=== PATIENT | male | born 1970 | race Caucasian/White ===

== ENCOUNTER 2020-07-16 08:22 | Outpatient (CLI) | payer BC, SELFPAY ==
--- NOTE | ~2020-07-16 | XR_ITS ---
EXAMINATION: XR chest 2V DATE: 07/16/2020 08:43 INDICATION: Preop. TECHNIQUE: Frontal and lateral views of the chest were obtained. COMPARISON: Chest 2 views 05/20/2016 FINDINGS: A calcified right lung nodule is consistent with old granulomatous disease. No pleural effu tramaine or pneumothorax. The heart size is normal. IMPRESSION: 1. No acute cardiopulmonary disease. Reviewed, dictated and finalized at location B. [facility] [employer] [employer]
== END 2020-07-16 08:23 | disposition home or self-care (01) ==
PROVIDERS: PCP Family Medicine; Visit Provider Orthopaedic Surgery
DX: M75.100 Unspecified rotator cuff tear or rupture of unspecified shoulder, not specified as traumatic (principal); Z01.818 Encounter for other preprocedural examination
CPT/HCPCS: 71046; 87070

== ENCOUNTER 2020-07-27 00:33 | Outpatient (CLI) | payer BC, SELFPAY ==
[2020-07-27 16:41] LABS: SARS-CoV-2 RNA PCR Negative
== END 2020-07-27 00:34 | disposition home or self-care (01) ==
LOC: ANHCOVIDDT 00:33
PROVIDERS: PCP Family Medicine; Visit Provider Orthopaedic Surgery
DX: Z01.812 Encounter for preprocedural laboratory examination (principal); Z20.828 Contact with and (suspected) exposure to other viral communicable diseases
CPT/HCPCS: 87635; C9803; U0003

== ENCOUNTER 2020-07-29 00:47 | Day surgery (SDC) | payer BC, SELFPAY ==
[2020-07-15 14:17] VITALS: BMI 33.4
--- NOTE | 2020-07-24 12:24 | PM.IMHP ---
H&P: HPI History of Present Illness Date/Time: 07/24/20 12:24 <KAYLA Mcmahan - Last Filed: 07/24/20 12:30> Chief complaint: Right Shoulder Rotator Cuff Tear <KAYLA Mcmahan - Last Filed: 07/24/20 12:30> Narrative: Giuseppe Marcial is a 50 year old male Patient of Dr. Nagel who presents today for arthroscopy of his right shoulder with rotator cuff repair. He has been having symptoms in his shoulder for over 2 years. He has progressively worsening to the point where he is noticing that his shoulder is quite weak with a lot of normal daily activities. He is also getting quite a bit of pain in it as well. He was initially seen early June of this year. After initial evaluation he was sent for an MRI scan of the shoulder. MRI scan does show a full-thickness tear involving the entire width of the supraspinatus tendon. Also some partial tearing of the upper infraspinatus tendon. Patient has decided he would rather proceed with rotator cuff repair rather than continuing to treat this nonsurgically. <KAYLA Mcmahan - Last Filed: 07/24/20 12:30> Review of Systems Review of Systems: All systems reviewed & are unremarkable except as noted in HPI and below <KAYLA Mcmahan - Last Filed: 07/24/20 12:30> [facility] Past Medical History Medical History: Medical History Erectile dysfunction GERD (gastroesophageal reflux disease) ROSA MARIA (obstructive sleep apnea) Rotator cuff tear <KAYLA Mcmahan - Last Filed: 07/24/20 12:30> Social History Social History: Social History Smoking packs per day: 0.25 Smoking cigarettes per day: 5.0 Years smoked: 20 Smoking pack-years: 5.00 Smoking status: Former smoker Tobacco type: cigarettes Second hand tobacco smoke exposure: No Smoking end date: 09/04/08 Additional smoking assessment comments: QUIT FEW YEARS AGO Alcohol intake: current Drinks per week: 5 Substance use: never Substance use type: does not use Gender identity (if verbalized by the patient): Male Spiritual care concerns: No <KAYLA Mcmahan - Last Filed: 07/24/20 12:30> Meds Home Medications and Allergies Home medications: Home Medications Medication Instructions Recorded Confirmed Type sildenafil 50 mg tablet 50 mg PO DAILY PRN #10 tablet 09/30/19 07/29/20 Rx famotidine 20 mg PO DAILY 07/15/20 07/29/20 History <KAYLA Mcmahan Last Filed: 07/24/20 12:30> Allergies/Adverse reactions: Allergies Allergy/AdvReac Type Severity Reaction Status Date / Time No Known Allergies Allergy Unverified 07/29/20 10:47 <KAYLA Mcmahan Last Filed: 07/24/20 12:30> Exam Narrative: Exam Narrative: 50-year-old male very alert pleasant no distress. He is 5 ft 8 124 lb. Elevation of the right shoulder is to 160? with moderate pain. External rotation is 65 and internal rotation L1 all with moderate pain. He is unable do a subscap lift-off. He has normal belly press strength. Rather severe tenderness at the supraspinatus tendon insertion. AC joint is nontender. He has moderate weakness associated with mild pain with abduction testing. He has moderate pain with external rotation strength testing and mild weakness with this as well. Speed's maneuver is negative. He has normal biceps muscle contour. 2+ radial pulse. Neck range of motion causes no discomfort. <KAYLA Mcmahan - Last Filed: 07/24/20 12:30> Resp: Auscultation: clear to auscultation bilaterally <KAYLA Mcmahan Last Filed: 07/24/20 12:30> Cardio: Rate: regular rate <KAYLA Mcmahan Last Filed: 07/24/20 12:30> Rhythm: regular rhythm <KAYLA Mcmahan Last Filed: 07/24/20 12:30> Assessment and Plan Additional Plan Patient has a chronic medium-size rotator cuff tear involving the entire width of the supraspinatus and upper infraspinatus
--- NOTE | 2020-07-28 09:23 | P.PNAN_ITS ---
Anes - Initial Pre Proc Eval Procedure: Operation Date: 07/29/20 12:00 Proposed Procedures p Right Shoulder Arthroscopy, Acromioplasty, Mini Open Rotator Cuff Repair, Proceed As Indicated - Enrique Victoria MD Date/Time: 07/28/20 09:23 Surgeon: Enrique Victoria MD Pre Op Diagnosis: Right Shoulder Rotator Cuff Tear Patient Data Age: 50 Gender: M Height: 1.73 m Weight: 99.79 kg Allergies Allergy/AdvReac Type Severity Reaction Status Date / Time No Known Allergies Allergy Unverified 07/29/20 10:47 Home Medications Medication Instructions Recorded Confirmed Type sildenafil 50 mg tablet 50 mg PO DAILY PRN #10 tablet 09/30/19 07/29/20 Rx famotidine 20 mg PO DAILY 07/15/20 07/29/20 History Patient hx anesthesia problems: none Family hx anesthesia problems: none [facility] Past Medical History Medical History Erectile dysfunction GERD (gastroesophageal reflux disease) ROSA MARIA (obstructive sleep apnea) Rotator cuff tear Social History Social History Smoking packs per day: 0.25 Smoking cigarettes per day: 5.0 Years smoked: 20 Smoking pack-years: 5.00 Smoking status: Former smoker Tobacco type: cigarettes Second hand tobacco smoke exposure: No Smoking end date: 09/04/08 Additional smoking assessment comments: QUIT FEW YEARS AGO Alcohol intake: current Drinks per week: 5 Substance use: never Substance use type: does not use Gender identity (if verbalized by the patient): Male Spiritual care concerns: No Anes - Eval Final PreProcedure Day of Procedure 07/28/20 09:23 Patient weight: obese Heart: regular rate and rhythm Lungs: clear to auscultation and normal air movement Airway: Mallampati scale class III Neurological: alert and oriented Last oral intake: >/= 8 hours ASA classification: III Emergent: no Anesthetic plan: proceed Anesthesia type and monitoring: general ETT and standard monitoring Informed Consent: The patient's anesthetic plan and its attendant risks and benefits were discussed with the patient/family/POA. Questions were solicited and answers provided to the satisfaction of the patient/family/POA.
--- NOTE | 2020-07-28 09:23 | WPDANESPNB ---
Anes - Peripheral Nerve Block Date/Time: 07/28/20 09:23 I have discussed with the patient/family/POA the placement of a peripheral nerve block for post-operative pain management, including associated risks, benefits, complications, and side effects. Alternative methods of post-operative analgesia were detailed. Questions were solicited and answers provided to the satisfaction of the patient/family/POA. Time-Out: A pre-procedural Time-Out was completed immediately before starting the procedure and confirmed: Patient Identification, Site, Procedure, Patient Position and the Availability of Requisite Equipment. Clinical Indications: Acute post-operative pain management requested by the operative surgeon. Nerve Block Insertion Note Anes-nerve block: interscalene right Patient position: supine Skin prep: chlorhexidine Needle: 22 gauge, stimulating, insulated echogenic needle. Needle length: 50 mm Technique: ultrasound Injectate: bupivacaine 0.5% with epi 5 mcg/ml (30cc) Observations: tolerated well Complications: none Procedure start time:: 1211 Procedure end time:: 1213
[2020-07-29] VITALS (7 sets, daily range): BP systolic 113–144; BP diastolic 73–96; PULSE 60–78; RESP 14–18; TEMP 36.1–37.2; O2SAT 96–100
[2020-07-29] MEDS: ACETAMINOPHEN 500 MG TABLET 1000 MG PO (10:45)
[2020-07-29] MEDS: LACTATED RINGERS 1,000 ML 30 ML IV CONT ×2 (11:04→14:42)
[2020-07-29] MEDS: KETOROLAC 15 MG/ML VIAL (*BKC) IV PUSH (11:05)
--- NOTE | 2020-07-29 12:05 | WPDHPUPDATE1 ---
History and Physical Update Update Date/Time: 07/29/20 12:05 History and Physical has been reviewed, including an updated exam of the patient. There are NO changes in the patient's condition. Risks, benefits, and alternatives have been discussed and questions answered. Patient agrees to proceed with procedure.
[2020-07-29] MEDS: ceFAZolin 2 GM/D5W 50 ML 2 GM/50 ML BAG IVPB (12:18)
[2020-07-29] MEDS: ceFAZolin SODIUM 1 GM VIAL IRRIGATION ×2 (13:40→14:27)
--- NOTE | 2020-07-29 14:25 | PM.PROC ---
Procedure Note - Detailed Date of procedure: 07/29/20 Pre-op diagnosis: Right Shoulder Rotator Cuff Tear Post-op diagnosis: same Procedure performed: Arthroscopic labral debridement arthroscopic acromioplasty mini open rotator cuff repair right shoulder Description of procedure: Patient was brought to the operating room and general anesthesia was administered. He received an interscalene block preoperatively. He was given 2 g of Ancef and weight based vancomycin IV preoperatively. He was placed in the beach chair position head secured in neutral alignment the right shoulder prepped draped usual fashion. All the skin covered with Ioban accept the top portion. Posterior arthroscopic portal was placed. The articular surfaces looked fine. He had a hypermobile superior labrum with maceration of its inner margin which was lightly debrided with motorized shaver. The long of the biceps and its anchor looked normal. The biceps was retracted into the joint portion in the bicipital groove showed no evidence of fraying. There was minimal fissuring at the articular side of the insertion of the subscapularis and using the 70 scope with posterior lever push maneuver we could see its insertion well there was no significant tearing there. There is a full-thickness tear of the supraspinatus tendon visible and upper infraspinatus. Arthroscope was placed in the subacromial space. There was marked fraying of the CA ligament. He had a large anterior acromial osteophyte. An outflow portal was placed anterior superiorly and mid lateral portal placed and we is alternating shaver and ArthroCare to debride the CA ligament origin exposing the spur and the wound mid lateral portal the spur was burred with the arthroscopic router from posterior portal the compressing the anterior subacromial space. Arthroscopic instruments removed. All the skin was covered with Ioban outer gloves changed. A 2 in longitudinal incision was made over the anterior superior shoulder dissection carried down to the tendons raphe between the anterior middle heads of the deltoid which was longitudinally incised. This was elevated off the acromial spur. Although the spur was thinned quite a bit with the burning from in the joint and extended anteriorly and was easy to simply remove the anterior extension with the needle-nose rongeur and this was further smoothed with the Merlin rasp completing the acromioplasty process. I would estimate that we released about 5 mm of anterior deltoid to expose this and this gave optimal exposure in the deltoid split which was made for 4 cm and a self-retaining retractor was placed. The tear was a medium-sized tear about 2 cm in with a U shaped. It did involve the anterior cable of the supraspinatus right up to the long of the biceps. Greater tuberosity was carefully debrided a 2 mm bur used to make numerous 1 mm indentations and 2 mm bur holes adjacent to articular surface for Paget's suture. The Uniregistry suture Passer was used pass 2 of the Arthrex suture tapes through the tendon obtaining maximal thickness bites to work obtained purchase on the entire with the tendon insertion and these were shuttled through the greater tuberosity in the appropriate position to reduce and begin to secure the rotator cuff repair. Then reinforced repair with another 5 or 6 2. Ethibond all placed in simple fashion in the converging pattern to give us a spherical surface on the repaired rotator cuff. Range of motion was good there is no undue stress on the repair. We did release subacromial adhesions with the tear elevator. A single 2. Vicryl was passed through the anterior acromion as well as 2. Vicryl as in the split to give a secure deltoid repair. Skin closed with 2 subcutaneous Vicryl and glue was placed in a slingshot type UltraSling device and transferred postop recovery room stable condition. No known complications. I felt the tendon thickness and integrity of the tendon was good. Anesthesia:
--- NOTE | 2020-07-29 15:17 | SUR.PHASEI ---
1515- PT WITH STRONG COUGH, FEELING OF CONGESTION . PT HAD A BLOCK PRIOR TO SURGERY. SITTING UPRIGHT.
== END 2020-07-29 16:36 | disposition home or self-care (01) ==
PROVIDERS: PCP Family Medicine; Visit Provider Orthopaedic Surgery
PROC: (CPT 29805; principal; 2020-07-29 12:00)
DX: M75.101 Unspecified rotator cuff tear or rupture of right shoulder, not specified as traumatic (principal); G89.18 Other acute postprocedural pain; G47.33 Obstructive sleep apnea (adult) (pediatric); K21.9 Gastro-esophageal reflux disease without esophagitis; N52.9 Male erectile dysfunction, unspecified; Z87.891 Personal history of nicotine dependence; E66.9 Obesity, unspecified; Z68.34 Body mass index [BMI] 34.0-34.9, adult
CPT/HCPCS: 23412; 29823; 64415; A4565; A9270; J0690; J1100; J1885; J2250; J2405; J2704; J2710; J3010; J3370; J7120

== ENCOUNTER 2022-02-07 02:18 | Day surgery (SDC) | payer OTHER, SELFPAY ==
[2022-01-18 13:51] VITALS: BMI 32.5
--- NOTE | 2022-02-07 07:07 | PM.HPGS ---
History of Present Illness History of Present Illness Consent: Risks, benefits, and alternatives have been discussed and questions answered. Patient agrees to proceed with procedure. Chief complaint: neoplasm screening Narrative: Raimundo Marcial is a 52 year old male Referred for colon cancer screening. Review of Systems Review of Systems: All systems reviewed & are unremarkable except as noted in HPI and below PMFSH Past Medical History Medical History Erectile dysfunction GERD (gastroesophageal reflux disease) Obesity ROSA MARIA (obstructive sleep apnea) Rotator cuff tear s/p repair Social History Social History Smoking packs per day: 0.5 Smoking cigarettes per day: 10.0 Years smoked: 10 Smoking pack-years: 5.00 Smoking status: Former smoker Tobacco type: cigarettes Second hand tobacco smoke exposure: No Smoking end date: 09/04/08 Additional smoking assessment comments: QUIT FEW YEARS AGO Alcohol intake: current Drinks per week: 5 Substance use: never Substance use type: does not use Living arrangements: with family Gender identity (if verbalized by the patient): Male Sexual Orientation (if Verbalized by the Patient): Straight or Heterosexual Spiritual care concerns: No Meds Home Medications and Allergies Home Medications Medication Instructions Recorded Confirmed Type famotidine 20 mg tablet 20 mg PO DAILY 07/15/20 01/18/22 History sildenafil 50 mg tablet (Viagra) 50 mg PO DAILY PRN sexual activity 04/12/21 02/07/22 Rx #10 tabs Allergies Allergy/AdvReac Type Severity Reaction Status Date / Time No Known Allergies Allergy Verified 02/07/22 10:04 Exam Resp: Auscultation: clear to auscultation bilaterally Cardio: Rate: regular rate Rhythm: regular rhythm GI: GI Palp: Yes Soft to palpation and No Tenderness to palpation present (GI) Assessment and Plan Assessment and plan (1) Colon cancer screening: Code(s): Z12.11 - Encounter for screening for malignant neoplasm of colon Status: Acute Assessment and Plan: Colonoscopy with possible biopsy or polypectomy or cautery or injection of substances.
--- NOTE | 2022-02-07 09:04 | WPDANESEPPF ---
Anes - Initial Pre Proc Eval Procedure: Operation Date: 02/07/22 11:00 Proposed Procedures p Screening Colonoscopy - Jose Antonio Villar MD Date/Time: 02/07/22 09:04 Surgeon: Jose Antonio Villar MD Pre Op Diagnosis: neoplasm screening Patient Data Age: 52 Gender: M Height: 1.75 m Weight: 100 kg Allergies Allergy/AdvReac Type Severity Reaction Status Date / Time No Known Allergies Allergy Verified 02/07/22 10:04 Home Medications Medication Instructions Recorded Confirmed Type famotidine 20 mg tablet 20 mg PO DAILY 07/15/20 01/18/22 History sildenafil 50 mg tablet (Viagra) 50 mg PO DAILY PRN sexual activity 04/12/21 02/07/22 Rx #10 tabs Patient hx anesthesia problems: none Family hx anesthesia problems: none Results Review: All pre-operative results and documents have been reviewed as part of the pre-operative evaluation. [facility] Past Medical History Medical History (Updated 02/07/22 @ 09:04 by Kai Adkins MD) Erectile dysfunction GERD (gastroesophageal reflux disease) Obesity ROSA MARIA (obstructive sleep apnea) Rotator cuff tear s/p repair Social History Social History (Updated 10/13/20 @ 14:00 by Mary Kumar) Smoking packs per day: 0.5 Smoking cigarettes per day: 10.0 Years smoked: 10 Smoking pack-years: 5.00 Smoking status: Former smoker Tobacco type: cigarettes Second hand tobacco smoke exposure: No Smoking end date: 09/04/08 Additional smoking assessment comments: QUIT FEW YEARS AGO Alcohol intake: current Drinks per week: 5 Substance use: never Substance use type: does not use Living arrangements: with family Gender identity (if verbalized by the patient): Male Sexual Orientation (if Verbalized by the Patient): Straight or Heterosexual Spiritual care concerns: No Anes - Eval Final PreProcedure Day of Procedure 02/07/22 09:04 Patient weight: obese Heart: regular rate and rhythm Lungs: clear to auscultation and normal air movement Airway: Mallampati scale class III Neurological: alert and oriented Last oral intake: >/= 8 hours ASA classification: II Emergent: no Anesthetic plan: proceed Anesthesia type and monitoring: general GIVS Results Review: All pre-operative results and documents have been reviewed as part of the pre-operative evaluation. Informed Consent: The patient's anesthetic plan and its attendant risks and benefits were discussed with the patient/family/POA. Questions were solicited and answers provided to the satisfaction of the patient/family/POA.
[2022-02-07 10:05] VITALS: BP 124/83; PULSE 68; RESP 18; TEMP 36.2; O2SAT 99; BMI 32.3
[2022-02-07] MEDS: LACTATED RINGERS 1,000 ML 150 ML IV CONT (10:14)
[2022-02-07 10:48] VITALS: BP 108/69; PULSE 83; RESP 17; O2SAT 97
[2022-02-07 10:58] VITALS: BP 115/73; PULSE 64; RESP 19; O2SAT 97
[2022-02-07 11:08] VITALS: BP 106/72; PULSE 64; RESP 18; O2SAT 98
== END 2022-02-07 11:19 | disposition home or self-care (01) ==
PROVIDERS: PCP Family Medicine; Visit Provider Internal Medicine Gastroenterology
PROC: 0DJD8ZZ Inspection of Lower Intestinal Tract, Via Natural or Artificial Opening Endoscopic (ICD-10-PCS; CPT 45378; principal; 2022-02-07 11:00)
DX: Z12.11 Encounter for screening for malignant neoplasm of colon (principal); K57.30 Diverticulosis of large intestine without perforation or abscess without bleeding; E66.9 Obesity, unspecified; Z68.32 Body mass index [BMI] 32.0-32.9, adult; G47.33 Obstructive sleep apnea (adult) (pediatric); N52.9 Male erectile dysfunction, unspecified; K21.9 Gastro-esophageal reflux disease without esophagitis; Z87.891 Personal history of nicotine dependence
CPT/HCPCS: 45378; J2704; J7120

== ENCOUNTER 2024-11-27 08:17 | Emergency (ER) | payer OTHER, BC, SELFPAY ==
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
[2024-11-27 08:23] VITALS: BP 143/92; PULSE 80; RESP 18; TEMP 36.4; O2SAT 97
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
[2024-11-27] MEDS: KETOROLAC 15 MG/ML VIAL (*BKC) IV PUSH (09:10)
--- OUTSIDE RECORDS SUMMARY | 2024-11-27 09:31 | XMS_ITS | Clinical Summary ---
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 Gender Identity Not on file Sexual Orientation Not on file Plan of Treatment Health Maintenance Due Date Last Done Comments Colon Cancer Screening-Colonoscopy 1968 Depression Screening 1968 Hepatitis C Screening 1968 Prostate Cancer Screening-PSA 1968 DTaP/Tdap/Td Vaccine (1 - Tdap) 01/29/1979 Hepatitis B Screening 01/29/1986 Regular Well Visit/Exam 18-64 01/29/1986 Zoster Vaccine (1 of 2) 01/29/2018 Covid-19 Vaccine (3 - 2023-2 5 season) 2024 11/16/2021, 11/23/2020 Influenza Vaccine (#1) 2024 Pneumococcal vaccine <65 Aged Out No longer eligible based on patient's age to complete this topic Insurance [employer] OOS Member Subscriber Plan / Payer (Ef fective 2022-Present) Name:Raimundo Marcial Relation to Subscriber:Self Name:Raimundo Marcial Payer ID:[id number] (NAIC) Type:[facility] Address: [facility] [address] [id number] Care Teams Massage Operator Relationship Specialty Start Date End Date Thiago Nagel MD [address] [place] [address] PCP - General Family Medicine 11/02/22
--- OUTSIDE RECORDS SUMMARY | 2024-11-27 09:31 | XMS_ITS | Clinical Summary ---
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 Gender Identity Not on file Sexual Orientation Not on file Plan of Treatment Health Maintenance Due Date Last Done Comments Hepatitis C Virus (HCV) Screening 1968 TdaP Immunization 1968 Hepatitis B Immunization (1 of 3 - 19+ 3-dose series) 01/29/1987 Colonoscopy 01/29/2013 Colorectal Cancer Screening 01/29/2013 Cologuard 01/29/2018 Immunochemical Fecal Occult Blood 01/29/2018 Pneumococcal Immunization (5 0+ years) (1 of 1 - PCV) 01/29/2018 Zoster Immunization (1 of 2) 01/29/2018 PSA Discussion 01/29/2023 Influenza Immunization (#1) 2024 SARS-COV-2 Immunization ( - season) 2024 Respiratory Syncytial Virus (RSV) Immunization (Adult) (1 - 1-dose 75+ series) 01/29/2043 Meningococcal Immunization (ACWY) Aged Out No longer eligible based on patient's age to complete this topic Pneumococcal Immunization Combined Aged Out No longer eligible based on patient's age to complete this topic Rotavirus Immunization Aged Out No lo nger eligible based on patient's age to complete this topic
--- OUTSIDE RECORDS SUMMARY | 2024-11-27 09:31 | XMS_ITS | Referral Summary ---
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
[2024-11-27 09:32] LABS: Basophils Absolute Auto 0.1 K/mm3 (0.0-0.1); Basophils Percent Auto 0.6 % (0.2-1.2); Eosinophils Absolute Auto 0.1 K/mm3 (0-0.3); Eosinophils Percent Auto 1.5 % (0-4.4); Hematocrit 46.8 % (42.0-52.0); Hemoglobin 15.8 g/dL (14.0-18.0); Immature Granulocyte Absolute 0.04 K/mm3 (0.00-0.031); Immature Granulocyte Percent A 0.5 % (0-0.5); Lymphocytes Percent Auto 17.4 % (18.3-44.2); Mean Corpuscular HGB Conc 33.8 g/dl (32-36); Mean Corpuscular Hemoglobin 31.3 pg (26-34); Mean Corpuscular Volume 92.9 fl (80-100); Mean Platelet Volume 9.7 fl (7.4-10.4); Monocytes Absolute Auto 0.5 K/mm3 (0.1-0.6); Platelet Count Result 342 k/mm3 (150-375); Red Blood Count 5.04 M/mm3 (4.6-6.20); Red Cell Distribution Width 13.2 % (11.5-14.5); White Blood Count 8.1 K/mm3 (4.5-10.0)
[2024-11-27 09:36] LABS: Estimated CRCL calculation 68 ml/min; Estimated Glomerular Filt Rate 57
[2024-11-27 09:43] LABS: INR 0.9; Prothrombin Time 12.8 Seconds (11.1-14.7)
[2024-11-27 09:44] LABS: Partial Thromboplastin Time 27.7 Seconds (22.3-36.8)
[2024-11-27 09:46] LABS: Alanine Aminotransferase 32 U/L (6-50); Albumin Level 4.7 g/dL (3.5-5.1); Alkaline Phosphatase 90 U/L (38-126); Anion Gap 10 mmol/L (4-12); Aspartate Amino Transferase 30 U/L (17-59); Bilirubin,Total 0.5 mg/dL (0.2-1.3); Blood Urea Nitrogen 17 mg/dL (9-20); Calcium 10.3 mg/dL (8.4-10.2); Carbon Dioxide 27 mmol/L (22-30); Chloride 104 mmol/L (98-107); Estimated CRCL calculation 70 ml/min; Estimated Glomerular Filt Rate 59; Glucose 110 mg/dL (65-110); Potassium 4.9 mmol/L (3.4-5.0); Sodium 141 mmol/L (137-145)
[2024-11-27 11:29] VITALS: BP 124/90; PULSE 80; RESP 16; O2SAT 97
== END 2024-11-27 11:30 | disposition home or self-care (01) ==
PROVIDERS: Emergency Provider Student in an Organized Health Care Education/Training Program; PCP Family Medicine
DX: S22.42XA Multiple fractures of ribs, left side, initial encounter for closed fracture (principal); E66.9 Obesity, unspecified; Z68.34 Body mass index [BMI] 34.0-34.9, adult; G47.33 Obstructive sleep apnea (adult) (pediatric); K21.9 Gastro-esophageal reflux disease without esophagitis; Z87.891 Personal history of nicotine dependence; M47.812 Spondylosis without myelopathy or radiculopathy, cervical region; V43.52XA Car driver injured in collision with other type car in traffic accident, initial encounter
CPT/HCPCS: 36415; 70450; 71260; 72125; 74177; 80053; 85025; 85610; 85730; 96374; 99284; J1885; Q9967

== ENCOUNTER 2024-12-04 09:51 | Outpatient (CLI) | payer BC, SELFPAY ==
--- NOTE | ~2024-12-04 | XR_ITS ---
HISTORY: None provided COMPARISON: Reference is made to CT examination of the chest, abdomen and pelvis dated 11/27/2024. TECHNIQUE: 3 views of the bilateral ribs were performed. FINDINGS: Plain film evaluation is not quite as sensitive as CT examination which demonstrated multiple nondisp laced fractures of the bilateral upper ribs. Within the limitations of a plain film evaluation: Possible fracture deformity is identified within the left fifth rib without additional fracture defor mity appreciated. Within the right hemithorax, no right-sided rib fractures are appreciated on plain film evaluation. Bone mineralization is age-appropriate. IMPRESSION: Given the limitations of a plain film evaluation of the bilateral ribs for fracture detection, a poss ible fracture deformity is identified within the left fifth rib, as detailed above. Repeat evaluation of CT examination dated 11/27/2024 demonstrated the following nondisplaced fractures : Within the anterior lateral margin of the left fourth, fifth, and sixth ribs. As well as within the anterior lateral margins of the right fifth, sixth, seventh and possibly the ei ghth ribs. Reviewed, dictated and finalized at location A. IMPRESSION: Given the limitations of a plain film evaluation of the bilateral ribs for frac ture detection, a possible fracture deformity is identified within the left fif th rib, as detailed above. Repeat evaluation of CT examination dated 11/27/2024 demonstrated the following nondisplaced fractures: Within the anterior lateral margin of the left fourth, fifth, and sixth ribs. As well as within the anterior lateral margins of the right fifth, sixth, seven th and possibly the eighth ribs.
--- OUTSIDE RECORDS SUMMARY | 2024-12-04 10:52 | XMS_ITS | Clinical Summary ---
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
--- OUTSIDE RECORDS SUMMARY | 2024-12-04 10:52 | XMS_ITS | Clinical Summary ---
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
--- OUTSIDE RECORDS SUMMARY | 2024-12-04 10:53 | XMS_ITS | Referral Summary ---
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
== END 2024-12-04 09:52 | disposition home or self-care (01) ==
PROVIDERS: PCP Family Medicine; Visit Provider Physician Assistant Medical
DX: S22.42XD Multiple fractures of ribs, left side, subsequent encounter for fracture with routine healing (principal); X58.XXXD Exposure to other specified factors, subsequent encounter
CPT/HCPCS: 71110

== ENCOUNTER 2024-12-12 12:26 | Outpatient (CLI) | payer BC, SELFPAY ==
--- NOTE | ~2024-12-12 | XR_ITS ---
AP, oblique, and lateral views of the right second toe CLINICAL HISTORY: Pain FINDINGS: No fracture or dislocation seen. Minimal degenerative change of the DIP joint. Soft tissues are unremarkable. IMPRESSION: Minimal degenerative change at the DIP joint of the right second toe. No fracture or dislocation. Reviewed, dictated and finalized at [facility].
--- NOTE | ~2024-12-12 | XR_ITS ---
EXAM/ PROCEDURE: XR foot RT min 3V - 12/12/2024 12:30 CDT HISTORY: 54 years old Male with M79.671 - Pain in right foot COMPARISON: None available TECHNIQUE: Three view(s) FINDINGS/ IMPRESSION: There are no fractures or dislocations.Joint space narrowing, subchondral sclerosis, subchondral cyst formation and osteophyte formation, compatible with mild osteoarthritis. Plantar calcaneal spur seen . Mild Achilles tendon enthesopathy noted. Reviewed, dictated and finalized at location A.
== END 2024-12-12 12:27 | disposition home or self-care (01) ==
LOC: MICIMG 12:27
PROVIDERS: PCP Family Medicine; Visit Provider Physician Assistant
DX: M79.671 Pain in right foot (principal); M79.674 Pain in right toe(s)
CPT/HCPCS: 73630; 73660

== ENCOUNTER 2024-12-17 14:51 | Outpatient (CLI) | payer BC, SELFPAY ==
--- NOTE | ~2024-12-17 | XR_ITS ---
Left Shoulder Technique: AP and axillary views were obtained. Clinical History: Pain Findings: No fracture or dislocation is seen. Osseous alignment is anatomic. The glenohumeral and acr omioclavicular joint spaces are preserved. Soft tissues are unremarkable. Impression: Unremarkable left shoulder radiographs. Reviewed, dictated and finalized at [facility]. Impression: Unremarkable left shoulder radiographs.
--- OUTSIDE RECORDS SUMMARY | 2024-12-17 16:01 | XMS_ITS | Referral Summary ---
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
--- OUTSIDE RECORDS SUMMARY | 2024-12-17 16:01 | XMS_ITS | Clinical Summary ---
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 Address: [facility] [id number] [phone] Care Teams Computerized Mill Mill Recorder Relationship Specialty Start Date End Date Thiago Nagel MD [address] [place] [address] PCP - General Family Medicine 11/02/22
--- OUTSIDE RECORDS SUMMARY | 2024-12-17 16:01 | XMS_ITS | Clinical Summary ---
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
== END 2024-12-17 14:52 | disposition home or self-care (01) ==
PROVIDERS: PCP Family Medicine; Visit Provider Family Medicine
DX: M25.512 Pain in left shoulder (principal)
CPT/HCPCS: 73030

== ENCOUNTER 2025-03-18 12:02 | Outpatient (CLI) | payer BC, SELFPAY ==
--- NOTE | ~2025-03-18 | XR_ITS ---
Left foot Technique: AP and lateral views were obtained. Clinical History: Pain Findings: No acute fracture or dislocation is seen. Osseous alignment is anatomic. Joint spaces are p reserved without erosive or degenerative change. Soft tissues are unremarkable. Impression: Unremarkable left foot radiographs. Reviewed, dictated and finalized at location . Impression: Unremarkable left foot radiographs.
--- NOTE | ~2025-03-18 | XR_ITS ---
Right foot Technique: AP, oblique, and lateral views were obtained. Clinical History: Pain Findings: No acute fracture or dislocation is seen. Osseous alignment is anatomic. There is moderate degenerative change of the first MTP joint. Soft tissues are unremarkable. Impression: Moderate degenerative change of the first MTP joint. Reviewed, dictated and finalized at [facility]. Impression: Moderate degenerative change of the first MTP joint.
== END 2025-03-18 12:03 | disposition home or self-care (01) ==
LOC: MICIMG 12:04
PROVIDERS: PCP Family Medicine; Visit Provider Family Medicine
DX: M19.071 Primary osteoarthritis, right ankle and foot (principal)
CPT/HCPCS: 73620

== ENCOUNTER 2025-06-02 11:15 | Outpatient (CLI) | payer BC, SELFPAY ==
--- NOTE | ~2025-06-02 | XR_ITS ---
EXAMINATION: XR foot RT min 3V, 06/02/2025 11:20 CDT HISTORY: S99.921A - Unspecified injury of right foot, initial enco... COMPARISON: No comparisons available. Findings: No acute fracture or malalignment. No significant degenerative changes. Soft tissues unremarkable. Impression: No acute fracture or malalignment. Reviewed, dictated and finalized at location P. Impression: No acute fracture or malalignment.
== END 2025-06-02 11:16 | disposition home or self-care (01) ==
LOC: MICIMG 11:17
PROVIDERS: PCP Family Medicine; Visit Provider Physician Assistant Medical
DX: S99.921A Unspecified injury of right foot, initial encounter (principal); X58.XXXA Exposure to other specified factors, initial encounter
CPT/HCPCS: 73630

== ENCOUNTER 2025-07-10 16:34 | Outpatient (CLI) | payer BC, SELFPAY ==
--- NOTE | ~2025-07-10 | XR_ITS ---
XR_[id number]_CR Indication: M54.5 - Low back pain Comparison: None Findings: The vertebral heights are intact. No fracture or subluxation. Moderate loss of disc height throughout Soft tissues unremarkable Impression: No acute abnormality. Reviewed, dictated and finalized at location P. ONAL BUSINESS MANAGER Impression: No acute abnormality.
--- NOTE | ~2025-07-10 | XR_ITS ---
XR lumbar spine 2-3V Indication: M54.5 - Low back pain Comparison: None Findings: The vertebral heights are intact. No fracture or subluxation. Moderate loss of disc height at L4-5 and L5-S1. Soft tissues unremarkable Impression: No acute abnormality. Reviewed, dictated and finalized at location P. RINE CELL TENDER Impression: No acute abnormality.
--- NOTE | ~2025-07-10 | XR_ITS ---
XR thoracic spine 2V Indication: M54.5 - Low back pain Comparison: None Findings: The vertebral heights are intact. No fracture or subluxation. The disc heights are intact. Soft tissues unremarkable Impression: No acute abnormality. Reviewed, dictated and finalized at location P. C ACOUSTIC ANALYST Impression: No acute abnormality.
--- NOTE | ~2025-07-10 | XR_ITS ---
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 Findings: No acute fracture or malalignment. No significant degenerative changes. Soft tissues unremarkable. Impression: No acute fracture or malalignment. Reviewed, dictated and finalized at location P. UGATOR MACHINE OPERATOR Impression: No acute fracture or malalignment.
--- NOTE | ~2025-07-10 | XR_ITS ---
EXAMINATION: XR chest 2V, 07/10/2025 16:39 CONSUMER RELATIONS COMPLAINT CLERK HISTORY: M54.5 - Low back pain COMPARISON: No comparisons available. Technique: 2 views obtained. Findings: The lungs are clear, no effusion. No pneumothorax. Heart is normal size. Mediastinal and hilar contours are within normal limits. Bony thorax no acute abnormality. Impression: No acute cardiopulmonary abnormality. Reviewed, dictated and finalized at location P. UMER RELATIONS COMPLAINT CLERK Impression: No acute cardiopulmonary abnormality.
== END 2025-07-10 16:35 | disposition home or self-care (01) ==
LOC: MICIMG 16:35
PROVIDERS: PCP Family Medicine
DX: M54.50 Low back pain, unspecified (principal); R29.890 Loss of height; M54.6 Pain in thoracic spine; R07.89 Other chest pain; V89.2XXA Person injured in unspecified motor-vehicle accident, traffic, initial encounter
CPT/HCPCS: 71046; 71120; 72040; 72070; 72100

== ENCOUNTER 2025-08-23 08:14 | Outpatient (CLI) | payer BC, SELFPAY ==
--- NOTE | ~2025-08-23 | MR_ITS ---
EXAMINATION: MR lumbar spine wo con DATE: 08/23/2025 08:58 INDICATION: Low back pain. TECHNIQUE: Magnetic resonance imaging (MRI) of the lumbar spine was performed without intravenous contrast. Sequences included sagittal T2-weighted FSE, sagittal T2-weighted FS FSE, sagittal T1-weighted FSE, and axial T2-weighted FSE. COMPARISON: Lumbar spine radiographs 07/10/25 FINDINGS: Alignment is normal. Vertebral body heights are normal. There is mildly decreased disc height at L4-L5. The distal spinal cord signal intensity is normal. The conus medullaris is at L1. The following disc levels are specifically discussed: L1-L2: The disc does not extend beyond the endplate margin. There is mild bilateral facet joint osteoarthritis. There is no neural foraminal stenosis. There is no central canal stenosis. L2-L3: The disc does not extend beyond the endplate margin. There is moderate bilateral facet joint osteoarthritis. There is no neural foraminal stenosis. There is no central canal stenosis. L3-L4: The disc does not extend beyond the endplate margin. There is severe bilateral facet joint osteoarthritis. There is no neural foraminal stenosis. There is no central canal stenosis. L4-L5: The disc is bulging and has an annular fissure. There is moderate right and severe left facet joint osteoarthritis. There is mild bilateral neural foraminal stenosis. There is mild central canal stenosis. L5-S1: The disc does not extend beyond the endplate margin. There is moderate bilateral facet joint osteoarthritis. There is no neural foraminal stenosis. There is no central canal stenosis. IMPRESSION: 1. Mild lumbar spondylosis. Reviewed, dictated and finalized at location E. EE MACHINE TECHNICIAN IMPRESSION: 1. Mild lumbar spondylosis.
--- OUTSIDE RECORDS SUMMARY | 2025-08-23 08:17 | XMS_ITS | Clinical Summary ---
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
--- OUTSIDE RECORDS SUMMARY | 2025-08-23 08:17 | XMS_ITS | Clinical Summary ---
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 Gender Identity Not on file Sexual Orientation Not on file Plan of Treatment Health Maintenance Due Date Last Done Comments Hepatitis C Virus (HCV) Screening 1970 TdaP Immunization 1970 Hepatitis B Immunization (1 of 3 - 19+ 3-dose series) 01/29/1987 Cologuard 01/29/2013 Colonoscopy 01/29/2013 Colorectal Cancer Screening 01/29/2013 Immunochemical Fecal Occult Blood 01/29/2013 Pneumococcal Immunization (5 0+ years) (1 of 1 - PCV) 01/29/2018 Zoster Immunization (1 of 2) 01/29/2018 Influenza Immunization (#1) 2025 SARS-COV-2 Immunization ( - season) 2025 Respiratory Syncytial Virus (RSV) Immunization (Adult) (1 - 1-dose 75+ series) 01/29/2043 Human Papillomavirus (HPV) Immunization Aged Out No longer eligible b ased on patient's age to complete this topic Meningococcal Immunization (ACWY) Aged Out No longer eligible based on patient's age to complete this topic Rotavirus Immunization Aged Out No lo nger eligible based on patient's age to complete this topic
== END 2025-08-23 08:15 | disposition home or self-care (01) ==
PROVIDERS: PCP Family Medicine
DX: M47.816 Spondylosis without myelopathy or radiculopathy, lumbar region (principal); V89.2XXA Person injured in unspecified motor-vehicle accident, traffic, initial encounter
CPT/HCPCS: 72148